=== PATIENT | male | born 1985 ===

== ENCOUNTER 2017-04-30 17:25 | Outpatient (CLI) | payer MEDICAID | END 2017-04-30 17:26 | disposition home or self-care (01) | LOC: LAB 17:25 | PROVIDERS: ATTEND Registered Nurse | DX: Z20.2 Contact with and (suspected) exposure to infections with a predominantly sexual mode of transmission (principal) | CPT/HCPCS: 36415; 86780; 86803; 87340; 87389 ==

== ENCOUNTER 2017-05-06 13:45 | Outpatient (CLI) | payer MEDICAID | END 2017-05-06 13:46 | disposition home or self-care (01) | LOC: LAB 13:45 | PROVIDERS: ATTEND Registered Nurse | DX: Z20.2 Contact with and (suspected) exposure to infections with a predominantly sexual mode of transmission (principal) | CPT/HCPCS: 36415; 87389 ==

== ENCOUNTER 2017-09-03 20:56 | Emergency (ER) | payer MEDICAID ==
--- NOTE | 2017-09-03 21:41 | XRAY Report ---
EXAM: RIGHT TOE RADIOGRAPHY EXAM DATE: 09/03/2017 09:31 PM. CLINICAL HISTORY: R 3rd toe deformity. COMPARISON: None. TECHNIQUE: 3 views. FINDINGS: Bones: Mildly displaced and angulated oblique fracture involving the proximal phalanx of the third to e. No articular margin involvement. Joints: Normal. No subluxations. Soft Tissues: Normal. No soft tissue swelling. IMPRESSION: Mildly displaced and angulated proximal third phalanx fracture. [facility] Referring Provider Line: [phone] SITE ID: [id number]
[2017-09-03] MEDS ORDERED: IBUPROFEN 800 MG TABLET PO STA (21:50)
--- NOTE | 2017-09-03 21:53 | ED Physician Documentation ---
PD HPI LOWER EXT INJURY - Stated complaint Stated Complaint: RT TOE INJ - Chief complaint Chief Complaint: Trauma Ext - History obtained from History obtained from: Patient - History of Present Illness PD HPI LOW EXT INJURY LOCATION: Right, Toe Where injury occurred: Home Timing - onset: Today Timing - duration: Hours (1) Timing - details: Abrupt onset Pain level max: 6 Pain level now: 3 Improved by: Rest Worsened by: Moving, Palpating Associated symptoms: Other (deformed) Recently seen: Not recently seen - Additional information Additional information: stubbed toe on a couch tonight Review of Systems Neurologic: denies: Focal weakness, Numbness PD PAST MEDICAL HISTORY - Past Medical History Past Medical History: Yes Psych: Depression - Past Surgical History Past Surgical History: No - Present Medications Home Medications: Ambulatory Orders Medication Instructions Recorded Confirmed Hydrocodone/Acetaminophen 1 - 2 each PO Q6H PRN #14 tablet 09/03/17 [Hydrocodon-Acetaminophen 5-325] Ibuprofen [Motrin] 800 mg PO Q8H PRN #30 tablet 09/03/17 - Allergies Allergies/Adverse Reactions: Allergies Allergy/AdvReac Type Severity Reaction Status Date / Time No Known Drug Allergies Allergy Verified 09/03/17 21:08 - Social History Does the pt smoke?: No Smoking Status: Never smoker Does the pt drink ETOH?: Yes ETOH Use: Beer Does the pt have substance abuse?: No - Immunizations Immunizations are current?: Yes - POLST Patient has POLST: No PD ED PE NORMAL - Vitals Vital signs reviewed: Yes - General General: Alert and oriented X 3, No acute distress - Derm Derm: Warm and dry - Extremities Extremities: Other (R 3rd toe deviated laterally. NVI. No other tenderness over the remainder of the foot or ankle) - Neuro Neuro: Alert and oriented X 3 Results - Vitals Vitals: Vital Signs - 24 hr 09/03/17 09/03/17 21:05 21:55 Temperature 37.0 C Heart Rate 91 90 Respiratory 16 16 Rate Blood Pressure 145/80 H 132/74 H O2 Saturation 98 99 Oxygen O2 Source Room air - Rads (name of study) R toe xray Radiology: Prelim report reviewed, EMP read contemporaneously, See rad report ( Mildly displaced and angulated proximal third phalanx fracture) PD MEDICAL DECISION MAKING - ED course Complexity details: reviewed results, re-evaluated patient, considered differential, d/w patient ED course: Patient is a 32-year-old male who presents to the emergency department after stubbing his toe earlier today. Has an obliquely oriented fracture through the proximal phalanx of the right third toe. Placed in a adan tape with the second toe and placed in a postop shoe. We will continue supportive care and follow-up with orthopedics as he does not have a doctor. Patient counseled regarding signs and symptoms for which I believe and urgent re-evaluation would be necessary. Patient with good understanding of and agreement to plan and is comfortable going home at this time This document was made in part using voice recognition software. While efforts are made to proofread this document, sound alike and grammatical errors may occur. Departure - Departure Disposition: 01 Home, Self Care Clinical Impression: Toe fracture, right Qualifiers: Encounter type: initial encounter Toe: unspecified toe Fracture type: closed Fracture alignment: displaced Qualified Code(s): S92.911A - Unspecified fracture of right toe(s), initial encounter for closed fracture Condition: Good Instructions: ED Fx Foot Follow-Up: [facility] [Provider Group] - Within 1 week Prescriptions: Hydrocodone/Acetaminophen [Hydrocodon-Acetaminophen 5-325] 1 - 2 each PO Q6H PRN #14 tablet PRN Reason: pain Ibuprofen [Motrin] 800 mg PO Q8H PRN #30 tablet PRN Reason: PAIN &/OR FEVER Comments: Return if you worsen. Wear the post op shoe and keep the toe taped until seen by orthopedics. Do not drink alcohol or drive while on narcotic pain medicine. Note that many narcotic pain relievers also contain tylenol/acetaminophen. Please ensure that your total dose of acetaminophen from all sources does not exceed 3 grams (3000mg) per day. You may constipated on this medication, take a stool softener such as "Colace" twice a day while you are on it. Also recommend a [id number] laxative such as senna or MiraLAX any day that you do not have a bowel movement. If you received narcotic pain medication in the emergency department, do not drive or operate machinery for the next 24 hours. Discharge Date/Time: 09/03/17 21:59
[2017-09-03 22:08] VITALS: BP 132/74
== END 2017-09-03 21:59 | disposition home or self-care (01) ==
LOC: ED 20:56
DX: S92.911A Unspecified fracture of right toe(s), initial encounter for closed fracture (principal); W22.09XA Striking against other stationary object, initial encounter; Y92.009 Unspecified place in unspecified non-institutional (private) residence as the place of occurrence of the external cause
CPT/HCPCS: 73660; 99283; A9270